=== PATIENT | male | born 1950 | race Caucasian/White ===

== ENCOUNTER 2021-11-27 11:02 | Day surgery (SDC) | payer MEDICARE, OTHER ==
[2021-11-22 12:55] LABS: BASOPHILS % (AUTO) 0.8 % (0-1); EOSINOPHILS % (AUTO) 0.4 % (0-6); HEMATOCRIT 45.4 % (42.0-52.0); HEMOGLOBIN 15.4 g/dl (14.0-17.9); LYMPHOCYTES # (AUTO) 1.3 X10'3 (1.1-4.8); MEAN CORPUSCULAR HEMOGLOBIN 32.8 PG (27.0-31.0); MEAN CORPUSCULAR HGB CONC 33.9 g/dL (33.0-36.5); MEAN CORPUSCULAR VOLUME 96.8 FL (78-98); MEAN PLATELET VOLUME 7.5 FL (7.4-10.4); MONOCYTES # (AUTO) 0.7 X10'3 (0-0.9); MONOCYTES % (AUTO) 11.9 % (2-12); NEUTROPHILS # (AUTO) 3.5 X10'3 (1.8-7.7); NEUTROPHILS % (AUTO) 62.9 % (42-75); PLATELET COUNT 232 X10'3 (140-440); RED BLOOD COUNT 4.68 X10'6 (4.70-6.10); RED CELL DISTRIBUTION WIDTH 14.7 % (11.5-14.5); WHITE BLOOD COUNT 5.6 X10'3 (4.5-11.0)
[2021-11-22 13:08] LABS: APTT 34 SECONDS (22-32)
[2021-11-22 13:12] LABS: ALANINE AMINOTRANSFERASE 17 U/L (12-78); ALBUMIN 4.1 G/DL (3.4-5.0); ALBUMIN/GLOBULIN RATIO 1.1 (1.1-1.5); ALKALINE PHOSPHATASE 99 IU/L (46-116); ANION GAP 7 (8-16); ASPARTATE AMINO TRANSFERASE 18 U/L (10-37); BLOOD UREA NITROGEN 10 MG/DL (7-18); BUN/CREATININE RATIO 11.6 (5.4-32.0); CALCIUM 9.6 MG/DL (8.5-10.1); CHLORIDE 107 MMOL/L (99-107); CREATININE 0.86 MG/DL (0.60-1.10); GLUCOSE 121 MG/DL (70-104); POTASSIUM 3.5 MMOL/L (3.5-5.1); SODIUM 142 MMOL/L (135-145); TOTAL CARBON DIOXIDE 28.3 MMOL/L (24-32); TOTAL PROTEIN 7.8 G/DL (6.4-8.2); eGFR 87 ML/MIN
[2021-11-27] VITALS (13 sets, daily range): BP systolic 106–154; BP diastolic 60–96
[~2021-11-27] VITALS: Ht 172.7 cm; Wt 66.5 kg
[2021-11-27] MEDS ORDERED: PANT40TA54 PO (11:24)
[2021-11-27] MEDS ORDERED: GABA300C PO (11:24)
[2021-11-27] MEDS ORDERED: AMLO5TAB16 PO (11:24)
[2021-11-27] MEDS ORDERED: ALLO100T PO (11:25)
[2021-11-27] MEDS ORDERED: CITRACAL PO (11:32)
[2021-11-27] MEDS ORDERED: MULT-1085 PO (11:32)
[2021-11-27] MEDS ORDERED: ASCO500C12 PO (11:32)
[2021-11-27] MEDS ORDERED: nitroGLYCERIN 0.4mg SUBLingual tab SL PRN (11:40)
[2021-11-27] MEDS ORDERED: normal saline 1,000 ML IV SCH (11:40)
[2021-11-27] MEDS ORDERED: LORazepam 0.5 MG tablet PO PRN (11:40)
[2021-11-27] MEDS ORDERED: diphenhydrAMINE 25mg capsule PO PRN (11:40)
[2021-11-27] MEDS ORDERED: LIDOcaine 1% 30ml preserv. free vial ONE (11:45)
[2021-11-27] MEDS ORDERED: fentaNYL/PF 50MCG/1 ML 2ML syringe ONE (11:45)
[2021-11-27] MEDS ORDERED: iohexol 350MG/ML 100ml bottle IV ONE (11:45)
[2021-11-27] MEDS ORDERED: midazolam 1 mg/ML 2ml injection ONE (11:45)
[2021-11-27] MEDS ORDERED: HYDROmorphone 1 mg/ml syringe ONE (12:20)
[2021-11-27] MEDS ORDERED: normal saline 1000ml 1,000 ML IV SCH (13:35)
[2021-11-27] MEDS ORDERED: ondansetron/PF 4mg/2ml inj IV PRN (13:35)
[2021-11-27] MEDS ORDERED: OXAZEpam 15mg capsule PO PRN (13:35)
[2021-11-27] MEDS ORDERED: HYDROcodone/acetaminophen 5mg/325mg tablet PO PRN (13:35)
--- NOTE | 2021-11-27 17:15 | NUR ---
HOB up 45 degrees, right groin site stable, no bleeding, bruising or hematoma. Dressing CD&I.
--- NOTE | 2021-11-27 17:30 | NUR ---
HOB up 90 degrees, right groin site stable, no bleeding, bruising or hematoma. Dressing CD&I. Written and verbal DC instructions given to pt and , questions answered, both verbalize understanding.
--- NOTE | 2021-11-27 17:45 | NUR ---
Pt sat at EOB, then amb in hallway using FWW, gait steady. Right groin site stable, dressing CD&I, no lbeeding, bruising or hematoma noted. Pt able to stand at bedside and dress self.
== END 2021-11-27 18:00 | disposition home or self-care (01) ==
LOC: SSTAY O 11:02
PROVIDERS: ATTEND Internal Medicine Cardiovascular Disease
DX: R94.39 Abnormal result of other cardiovascular function study (principal); I25.10 Atherosclerotic heart disease of native coronary artery without angina pectoris; I10 Essential (primary) hypertension; M10.9 Gout, unspecified; J44.9 Chronic obstructive pulmonary disease, unspecified; F17.210 Nicotine dependence, cigarettes, uncomplicated; Z72.89 Other problems related to lifestyle; Z88.8 Allergy status to other drugs, medicaments and biological substances; Z79.899 Other long term (current) drug therapy; Z79.01 Long term (current) use of anticoagulants
CPT/HCPCS: 36415; 71046; 80053; 85025; 85610; 85730; 93005; 93458; 99152; C1760; C1769; J1170; J1644; J3010; J3490; J7030; Q9967; A4620; A6258; J2250